=== PATIENT | female | born 1940 | race Caucasian/White ===

== ENCOUNTER 2017-05-19 19:17 | Emergency (ER) | payer OTHER ==
[~2017-05-19] VITALS: Ht 170.2 cm; Wt 62.0 kg
[2017-05-19 19:21] VITALS: BP 135/73; PULSE 82; RESP 16; TEMP 98.7; O2SAT 97
[2017-05-19] MEDS ORDERED: CLON0.5T PO (19:54)
[2017-05-19] MEDS ORDERED: LAMO25 PO (19:54)
[2017-05-19] MEDS ORDERED: VESI5TAB2 PO (19:54)
[2017-05-19] MEDS ORDERED: QUET5TAB PO (19:54)
[2017-05-19] MEDS ORDERED: PRAV40TA2 PO (19:54)
--- NOTE | 2017-05-19 20:57 | PD ---
HPI Chief Complaint: GI Complaint Time Seen by Provider: 20:37 Travel History International Travel<30 days: No Contact w/Intl Traveler<30days: No Traveled to known affect area: No History of Present Illness HPI The patient is a 76-year-old female who presents to the emergency department for constipation versus bowel obstruction. The patient states he left [place] 1 week ago, she's not had a bowel movement since last Monday. The patient states it has been approximately 7 days and she had a bowel movement. The patient has been traveling, has been somewhat dehydrated, and was afraid to take a laxative while traveling. They stopped earlier today and saw a pharmacist who recommended magnesium citrate, however, told them to come to the emergency department prior to taking the magnesium citrate. The patient states she's not been passing gas, denies any nausea or vomiting, but has been belching. She does have a previous history of hysterectomy. She denies any history of small bowel obstruction. She denies any significant abdominal distention. The patient's symptoms are mild to moderate, there are no known alleviating or exacerbating factors. PFSH Past Medical History Bipolar Disorder: Yes Cerebrovascular Accident: Yes (TIA) Past Surgical History Abdominal Surgery: Yes (HYSTERECTOMY) Hysterectomy: Yes Social History Alcohol Use: No Tobacco Use: No Substance Use: No Allergies-Medications (Allergen,Severity, Reaction): Coded Allergies: Penicillins (Verified Allergy, Intermediate, Hives, 05/19/17) Uncoded Allergies: rubber like materials (Allergy, Mild, rashes, 05/19/17) Reported Meds & Prescriptions Reported Meds & Active Scripts Active Reported Clonazepam 0.5 Mg Tab 0.5 Mg PO DAILY Quetiapine (Quetiapine Fumarate) 50 Mg Tab 50 Mg PO DAILY Pravastatin 40 Mg Tab 40 Mg PO HS Lamictal (Lamotrigine) 25 Mg Tab 25 Mg PO DAILY Vesicare (Solifenacin) 5 Mg Tab 5 Mg PO DAILY Review of Systems Except as stated in HPI: all other systems reviewed are Neg General / Constitutional: No: Fever Cardiovascular: No: Chest Pain or Discomfort Respiratory: No: Shortness of Breath Gastrointestinal: Positive: Constipation, Changes in Bowel Habits, No: Nausea, Vomiting, Abdominal Pain Musculoskeletal: No: Weakness Neurologic: No: Weakness Physical Exam Narrative GENERAL: Awake, alert, pleasant 76-year-old female who appears her stated age and is in no acute respiratory distress. SKIN: Focused skin assessment warm/dry. HEAD: Atraumatic. Normocephalic. EYES: Pupils equal and round. No scleral icterus. No injection or drainage. ENT: No nasal bleeding or discharge. Mucous membranes pink and moist. NECK: Trachea midline. No JVD. CARDIOVASCULAR: Regular rate and rhythm. No murmur appreciated. RESPIRATORY: No accessory muscle use. Clear to auscultation. Breath sounds equal bilaterally. GASTROINTESTINAL: Abdomen soft, non-tender, nondistended. No tympany noted. No obvious distention. Rectal: The exam was performed in the presence of a female nurse. No fecal impaction. No gross blood. MUSCULOSKELETAL: No obvious deformities. No clubbing. No cyanosis. No edema. NEUROLOGICAL: Awake and alert. No obvious cranial nerve deficits. Motor grossly within normal limits. Normal speech. PSYCHIATRIC: Appropriate mood and affect; insight and judgment normal. Data Data Last Documented VS Vital Signs Date Time Temp Pulse Resp B/P (MAP) Pulse Ox O2 Delivery O2 Flow Rate FiO2 05/19/17 19:21 98.7 82 16 135/73 (93) 97 Room Air Orders Orders Abdomen, Upright Only (05/19/17 ) Ct Abd/Pel W/O Iv Contrast (05/19/17 ) Ed Discharge Order (05/19/17 23:13) MDM Medical Decision Making Medical Screen Exam Complete: Yes Emergency Medical Condition: Yes Medical Record Reviewed: Yes Interpretation(s) X-ray the abdomen reveals no free air CT the abdomen and pelvis reveals constipation. No obstruction. Differential Diagnosis Differential diagnosis includes chronic laxative use, medication side effect, constipation, small bowel obstruction, volvulus, large bowel obstruction, dehydration. Narrative Course The patient's rectal exam reveals no obvious impaction. Therefore, upright abdominal x-ray was ordered to evaluate for air-fluid levels for possible bowel obstruction. X-ray reveals no free air, did have distended loop of bowel, therefore, CT the abdomen and pelvis was ordered. CT the abdomen and pelvis reveals no obstruction. Patient be discharged home on GoLYTELY, will be provided a copy of her CT results and x-ray results at discharge. Diagnosis Primary Impression: Constipation Qualified Codes: K59.00 - Constipation, unspecified Patient Instructions: General Instructions Additional Instructions: Please provide the patient a copy of her CT results at discharge. Follow-up with your primary physician. GoLYTELY as directed. Plenty fluids to stay hydrated. Med/Other Pt SpecificInfo: Prescription(s) given Scripts Peg-Electrolytes (Golytely 236 gm) 4,000 Ml Soln 4000 ML PO ONCE for Bowel Cleanser, #1 CONTAINER 0 Refills Prov: Mau Buchanan MD 05/19/17 Disposition: 01 DISCHARGE HOME Condition: Stable Mau Buchanan MD May 19, 2017 20:57
--- NOTE | 2017-05-19 21:33 | RADRPT ---
EXAM DATE/TIME: 05/19/2017 21:14 [facility] COMPARISON: No previous studies available for comparison. INDICATIONS : Constipation for 7 days. MEDICAL HISTORY : None. SURGICAL HISTORY : None. ENCOUNTER: Initial ACUITY: 1 week PAIN SCORE: 0/10 LOCATION: Bilateral abdomen. FINDINGS: Single view of the upper abdomen demonstrates no evidence of free intraperitoneal gas. There is a ai r-containing structure in the retrocardiac region which probably represents hiatus hernia. Stool is seen in the visualized portion of the right and left colon. The visualized lower lungs are clear. CONCLUSION: No evidence of free air. Elder Mills MD on May 19, 2017 at 21:30 Board Certified Radiologist. This report was verified electronically.
--- NOTE | 2017-05-19 23:03 | RADRPT ---
EXAM DATE/TIME: 05/19/2017 22:31 [facility] COMPARISON: No previous studies available for comparison. INDICATIONS : Abdominal pain and constipation; rule out obstruction. ORAL CONTRAST: No oral contrast ingested. RADIATION DOSE: 6.64 CTDIvol (mGy) MEDICAL HISTORY : None SURGICAL HISTORY : Hysterectomy. ENCOUNTER: Initial ACUITY: 1 week PAIN SCALE: 6/10 LOCATION: abdomen TECHNIQUE: Volumetric scanning of the abdomen and pelvis was performed. Using automated exposure control and ad justment of the mA and/or kV according to patient size, radiation dose was kept as low as reasonably achievable to obtain optimal diagnostic quality images. DICOM format image data is available electro nically for review and comparison. FINDINGS: Moderate sized hiatus hernia measuring 5.7 cm. Linear area of opacity in the lateral right lower ronald g may represent atelectasis or scarring. No evidence of pleural effusion. There are multiple small gallstones layering in the gallbladder lumen. The liver, spleen, adrenal gl ands, and pancreas are unremarkable for noncontrast technique. The kidneys are symmetric in size. N o evidence of hydronephrosis. There is a 1.7 cm oval hyperdense lesion in the medial cortex of the u pper pole of the left kidney which cannot be further characterized on noncontrast study. Urinary bladder margins are smooth and there is mild distention of the urinary bladder. Nonspecific bilateral inguinal lymph nodes measure up to 11 mm in size. No evidence of free fluid. No dilated loops of small bowel. There is a prominent amount of stool throughout the colon. Wide wi ndows for bony detail demonstrate the osseous structures to be intact. CONCLUSION: 1. Constipation. No dilated loops of small bowel. 2. Multiple gallstones. 3. Large hiatus hernia. 4. 1.7 cm hyperdense lesion in the upper pole of the left kidney. Recommend further characterization with ultrasound to help determine cystic versus solid nature. Elder Mills MD on May 19, 2017 at 22:57 Board Certified Radiologist. This report was verified electronically.
[2017-05-19] MEDS ORDERED: COLY4000S PO (23:14)
== END 2017-05-19 23:29 | disposition home or self-care (01) ==
LOC: NEPC 19:17
DX: K59.00 Constipation, unspecified (principal)
CPT/HCPCS: 74000; 74176; 99284